=== PATIENT | female | born 1975 | race Caucasian/White ===

== ENCOUNTER 2017-08-23 10:01 | Emergency (ER) | payer BC ==
[2017-08-23 10:13] VITALS: BP 130/97
[2017-08-23] MEDS ORDERED: Sodium Chloride 0.9% 10 ML Syringe FLUSH PRN (10:35)
[2017-08-23] MEDS ORDERED: Famotidine 20 MG/2 ML SDV IVPUSH ONE (10:35)
[2017-08-23] MEDS ORDERED: Ondansetron 4 MG/2 ML SDV IVPUSH ONE (10:35)
[2017-08-23] MEDS ORDERED: Sodium Chloride 0.9% 1,000 ML IV SCH (10:45)
--- NOTE | 2017-08-23 11:07 | EDM.PDOC ---
ED HPI GENERAL MEDICAL PROBLEM - General Chief Complaint: Abdominal Pain Stated Complaint: RIGHT SIDE PAIN Time Seen by Provider: 08/23/17 10:23 Source of Information: Reports: Patient, RN Notes Reviewed - History of Present Illness INITIAL COMMENTS - FREE TEXT/NARRATIVE: 41-year-old female comes in with abdominal pain, nausea and vomiting. This all came on yesterday late afternoon or early evening. Reportedly had eaten a cheeseburger not long before onset of symptoms. She's had continued nausea and vomiting and now mostly dry heaves. She has intermittent pain and cramping but at time of my exam discomfort is very mild she also has been having some diarrhea but that has been more chronic going on for quite a long time. No fever or chills. 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 She does not give history of prior gallbladder problems that she is aware of. No chest pain or difficulty breathing. Right Upper Abdomen Pain Score (Numeric/FACES): 4 - Related Data Allergies Allergy/AdvReac Type Severity Reaction Status Date / Time morphine Allergy Anaphylactic Verified 08/23/17 10:13 Shock Penicillins Allergy Swollen Verified 09/01/13 08:40 Tongue shellfish derived Allergy Airway Verified 01/07/16 14:12 Tightness Home Meds: Home Meds Cetirizine [ZyrTEC] 10 mg PO DAILY 08/23/17 [History] Past Medical History Respiratory History: Reports: Asthma, Bronchitis, Recurrent, Pneumonia, Recurrent Gastrointestinal History: Reports: Other (See Below) Other Gastrointestinal History: "colon errosion" in 2006 Genitourinary History: Reports: Other (See Below) Other Genitourinary History: pain with urination VICE PRINCIPAL History: Reports: Other (See Below) Other OB/BYN History: benign left ovarian mass removed 2013 Neurological History: Reports: Migraines Psychiatric History: Reports: Anxiety, Depression - Past Surgical History HEENT Surgical History: Reports: Tonsillectomy Social & Family History - Family History Family Medical History: Noncontributory - Tobacco Use Smoking Status *Q: Current Every Day Smoker Years of Tobacco use: 18 Packs/Tins Daily: 0.5 - Caffeine Use Caffeine Use: Reports: Energy Drinks, Soda - Recreational Drug Use Recreational Drug Use: No ED ROS GENERAL - Review of Systems Review Of Systems: See Below Constitutional: Denies: Fever, Chills, Diaphoresis HEENT: Denies: Throat Pain Respiratory: Denies: Shortness of Breath, Pleuritic Chest Pain Cardiovascular: Denies: Chest Pain GI/Abdominal: Reports: Abdominal Pain, Diarrhea, Nausea, Vomiting Musculoskeletal: Reports: Back Pain (Mild, gone) Skin: Reports: No Symptoms Neurological: Reports: Headache ED EXAM, GI/ABD - Physical Exam Exam: See Below General Appearance: Alert, Mild Distress Eyes: Bilateral: Normal Appearance Throat/Mouth: Normal Inspection, Normal Oropharynx Head: Atraumatic. No: Facial Swelling Neck: Supple, Full Range of Motion Respiratory/Chest: No Respiratory Distress, Lungs Clear, Normal Breath Sounds Cardiovascular: Regular Rate, Rhythm GI/Abdominal Exam: Soft, Tender (Mild upper mid abdominal tenderness, lower abdomen completely soft and nontender). No: Guarding, Rebound Extremities: Normal Inspection Neurological: Alert, Oriented, No Motor/Sensory Deficits Skin Exam: Warm, Dry, Normal Color Course - Vital Signs Last Recorded V/S: Last Vital Signs Temp 98.1 F 08/23/17 10:07 Pulse 78 08/23/17 10:07 Resp 16 08/23/17 10:07 BP 130/97 H 08/23/17 10:07 Pulse Ox 98 08/23/17 10:07 - Orders/Labs/Meds Orders: Active Orders 24 hr Category Date Time Status Peripheral IV Care [RC] . DIRECTED Care 08/23/17 10:35 Active Peripheral IV Insertion Adult [OM.PC] Stat Oth 08/23/17 10:35 Ordered Labs: Laboratory Tests 08/23/17 08/23/17 08/23/17 Range/Units 11:15 11:15 11:35 WBC 6.94 (3.98-10.04) K/mm3 RBC 4.71 (3.98-5.22) M/mm3 Hgb 13.4 (11.2-15.7) gm/L Hct 41.0 (34.1-44.9) % MCV 87.0 (79.4-94.8) fl MCH 28.5 (25.6-32.2) pg MCHC 32.7 (32.2-35.5) g/dl RDW Std Deviation 41.8 (36.4-46.3) fL Plt Count 269 (182-369) K/mm3 MPV 10.1 (9.4-12.3) fl Neut % (Auto) 59.3 (34.0-71.1) % Lymph % (Auto) 22.8 (19.3-51.7) % [place] % (Auto) 8.6 (4.7-12.5) % Eos % (Auto) 8.2 H (0.7-5.8) Baso % (Auto) 1.0 (0.1-1.2) % Neut # (Auto) 4.11 (1.56-6.13) K/mm3 Lymph # (Auto) 1.58 (1.18-3.74) K/mm3 [place] # (Auto) 0.60 H (0.24-0.36) K/mm3 Eos # (Auto) 0.57 H (0.04-0.36) K/mm3 Baso # (Auto) 0.07 (0.01-0.08) K/mm3 Sodium 143 (136-145) mEq/L Potassium 3.7 (3.5-5.1) mEq/L Chloride 108 H (98-107) mEq/L Carbon Dioxide 27 (21-32) mEq/L Anion Gap 11.7 (5-15) BUN 17 (7-18) mg/dL Creatinine 0.6 (0.55-1.02) mg/dL Est Cr Clr Drug Dosing 95.62 mL/min Estimated GFR (MDRD) > 60 (>60) mL/min BUN/Creatinine Ratio 28.3 H (14-18) Glucose 93 (74-106) mg/dL Calcium 8.6 (8.5-10.1) mg/dL Total Bilirubin 0.7 (0.2-1.0) mg/dL AST 14 L (15-37) U/L ALT 18 (14-59) U/L Alkaline Phosphatase 38 L (46-116) U/L Total Protein 7.0 (6.4-8.2) g/dl Albumin 3.4 (3.4-5.0) g/dl Globulin 3.6 gm/dL Albumin/Globulin Ratio 0.9 L (1-2) Lipase 160 (73-393) U/L Urine Color Yellow (Yellow) Urine Appearance Slt cloudy H (Clear) Urine pH 7.0 (5.0-8.0) Ur Specific [place] 1.025 (1.005-1.030) Urine Protein Negative (Negative) Urine Glucose (UA) Negative (Negative) Urine Ketones 1+ H (Negative) Urine Occult Blood Negative (Negative) Urine Nitrite Negative (Negative) Urine Bilirubin Negative (Negative) Urine Urobilinogen 0.2 (0.2-1.0) Ur Leukocyte Esterase Negative (Negative) Urine RBC 0-5 (0-5) /hpf Urine WBC 0-5 (0-5) /hpf Ur Epithelial Cells 5-10 H (0-5) /hpf Urine Bacteria Few (FEW) /hpf Urine Mucus Few (FEW) /hpf Meds: Medications Discontinued Medications Generic Name Dose Route Start Last Admin Trade Name Freq PRN Reason Stop Dose Admin Acetaminophen 975 mg 08/23/17 11:54 08/23/17 12:00 Tylenol PO 08/23/17 11:55 975 mg NOW ONE Administration Famotidine 20 mg 08/23/17 10:35 08/23/17 10:41 Pepcid IVPUSH 08/23/17 10:36 20 mg ONETIME ONE Administration Sodium Chloride 1,000 mls @ 999 mls/hr 08/23/17 10:45 08/23/17 10:42 Normal Saline IV 999 mls/hr ONETIME LYNN Administration Ketorolac Tromethamine 30 mg 08/23/17 12:00 08/23/17 12:01 Toradol IVPUSH 30 mg ONETIME LYNN Administration Ondansetron HCl 4 mg 08/23/17 10:35 08/23/17 10:41 Zofran IVPUSH 08/23/17 10:36 4 mg ONETIME ONE Administration Sodium Chloride 10 ml 08/23/17 10:35 08/23/17 10:41 Saline Flush FLUSH 10 ml ASDIRECTED PRN Administration Keep Vein Open - Re-Assessments/Exams Free Text/Narrative Re-Assessment/Exam: 08/23/17 19:03 Labs are all good, patient feeling much better after IV fluid and Zofran. We did give some Toradol and Tylenol for headache. Discharge instructions as documented. Departure - Departure Time of Disposition: 12:48 Disposition: Home, Self-Care 01 Clinical Impression: Abdominal pain Qualifiers: Abdominal location: upper abdomen, unspecified Qualified Code(s): R10.10 - Upper abdominal pain, unspecified Vomiting Qualifiers: Vomiting type: unspecified Vomiting Intractability: non-intractable Nausea presence: with nausea Qualified Code(s): R11.2 - Nausea with vomiting, unspecified - Discharge Information Instructions: Abdominal Pain, Adult, [id number], Vomiting, Adult Referrals: PCP,None [Primary Care Provider] - Forms: ED Department Discharge, ED Return to Work/School Form Additional Instructions: Clear liquids until this evening, than very careful bland diet as tolerated, avoid milk and dairy products for at least 2-3 days, probiotic twice daily for the next week and thereafter as needed, clinic with Dr. Garcia or one of the other providers as suggested in about 3-4 days for recheck and also for a complete physical. Call [phone] for appointment. - My Orders Last 24 Hours: My Active Orders 08/23/17 10:35 Peripheral IV Care [RC] . DIRECTED Peripheral IV Insertion Adult [OM.PC] Stat - Assessment/Plan Last 24 Hours: My Active Orders 08/23/17 10:35 Peripheral IV Care [RC] . DIRECTED Peripheral IV Insertion Adult [OM.PC] Stat
[2017-08-23] MEDS ORDERED: Acetaminophen 325 MG Tab PO ONE (11:54)
[2017-08-23] MEDS ORDERED: Ketorolac 30 MG/ML SDV IVPUSH SCH (12:00)
== END 2017-08-23 13:00 | disposition home or self-care (01) ==
LOC: JD.ED 10:01
DX: R10.10 Upper abdominal pain, unspecified (principal); R11.2 Nausea with vomiting, unspecified; F17.210 Nicotine dependence, cigarettes, uncomplicated; Z88.5 Allergy status to narcotic agent; Z88.0 Allergy status to penicillin; Z91.013 Allergy to seafood
CPT/HCPCS: 36415; 80053; 81001; 83690; 85025; 96361; 96374; 96375; 99284; A9270; J1885; J2405; J7040; J7050

== ENCOUNTER 2018-06-03 12:22 | Emergency (ER) | payer BC, OTHER, SELFPAY ==
[2018-06-03 12:34] VITALS: BP 138/70
[2018-06-03] MEDS ORDERED: Cyclobenzaprine 10 MG Tab PO ONE (12:57)
[2018-06-03] MEDS ORDERED: Ketorolac 60 MG/2 ML SDV IM ONE (13:03)
[2018-06-03] MEDS: Ketorolac 30 MG/ML SDV IVPUSH ONE ×2 (13:04→13:09)
--- NOTE | 2018-06-03 13:20 | EDM.PDOC ---
<Tomeka Velez - Last Filed: 06/03/18 13:20> ED HPI GENERAL MEDICAL PROBLEM - General Chief Complaint: Back Pain or Injury Stated Complaint: BACK PAIN Time Seen by Provider: 06/03/18 12:33 Source of Information: Reports: Patient History Limitations: Reports: No Limitations - History of Present Illness INITIAL COMMENTS - FREE TEXT/NARRATIVE: 42-year-old female presents to emergency with chief complaints of sudden onset of lower back pain. She reports she has history of similar back pain in the past and had a "muscle." She states that the pain started in her lower back and his moving up her spine. She denies any incontinence of bowel or bladder, denies any chills or fever, denies any dysuria. She reports that she took Advil and Tylenol last evening. 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 She reports that she's been healthy otherwise. She does not currently have a PCP. Onset: Today, Sudden Onset Date: 06/03/18 Onset Time: 09:00 Duration: Getting Worse Location: Reports: Back Quality: Reports: Ache Severity: Mild Improves with: Reports: Medication Worsens with: Reports: Movement Associated Symptoms: Reports: No Other Symptoms. Denies: Chest Pain, Fever/ Chills, Headaches, Nausea/Vomiting, Shortness of Breath Middle Back Pain Score (Numeric/FACES): 8 - Related Data Allergies Allergy/AdvReac Type Severity Reaction Status Date / Time morphine Allergy Anaphylactic Verified 08/23/17 10:13 Shock Penicillins Allergy Swollen Verified 09/01/13 08:40 Tongue shellfish derived Allergy Airway Verified 01/07/16 14:12 Tightness Home Meds: Home Meds Cetirizine [ZyrTEC] 10 mg PO DAILY 08/23/17 [History] Cyclobenzaprine [Flexeril] 10 mg PO BID PRN #20 tab 06/03/18 [Rx] Past Medical History Respiratory History: Reports: Asthma, Bronchitis, Recurrent, Pneumonia, Recurrent Gastrointestinal History: Reports: Other (See Below) Other Gastrointestinal History: "colon errosion" in 2006 Genitourinary History: Reports: Other (See Below) Other Genitourinary History: pain with urination 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 History: benign left ovarian mass removed 2014 Musculoskeletal History: Reports: Back Pain, Chronic Neurological History: Reports: Migraines Psychiatric History: Reports: Anxiety, Depression - Past Surgical History HEENT Surgical History: Reports: Tonsillectomy Social & Family History - Family History Family Medical History: Noncontributory - Tobacco Use Smoking Status *Q: Current Every Day Smoker Years of Tobacco use: 19 Packs/Tins Daily: 0.5 - Caffeine Use Caffeine Use: Reports: Coffee - Recreational Drug Use Recreational Drug Use: No ED ROS GENERAL - Review of Systems Review Of Systems: ROS reveals no pertinent complaints other than HPI. Respiratory: Reports: No Symptoms Cardiovascular: Reports: No Symptoms GI/Abdominal: Reports: No Symptoms Musculoskeletal: Reports: Back Pain Skin: Reports: No Symptoms Neurological: Reports: No Symptoms (Denies any incontinence of bowel or bladder) Psychiatric: Reports: No Symptoms Hematologic/Lymphatic: Reports: No Symptoms Immunologic: Reports: No Symptoms ED EXAM,LOWER BACK PAIN/INJURY - Physical Exam Exam: See Below Exam Limited By: No Limitations General Appearance: Alert, WD/WN, No Apparent Distress Ears: Normal External Exam, Normal Canal, Hearing Grossly Normal, Normal TMs Nose: Normal Inspection, Normal Mucosa, No Blood Throat/Mouth: Normal Lips, Normal Teeth, Normal Oropharynx, Normal Voice, No Airway Compromise Neck: Normal Inspection, Supple, Non-Tender, Full Range of Motion Respiratory/Chest: No Respiratory Distress, Lungs Clear, Normal Breath Sounds, No Accessory Muscle Use, Chest Non-Tender Cardiovascular: Normal Peripheral Pulses, Regular Rate, Rhythm, No Edema, No Gallop, No JVD, No Murmur, No Rub Back Exam: Normal Inspection. No: Full Range of Motion (Patient has decreased range of motion due to pain, she has range of motion against resistance, patient is able to bend, stoop, twist and dorsiflex toes. Her skin is intact with normal temperature and sensation.) Extremities: Normal Inspection, Normal Range of Motion, Non-Tender, No Pedal Edema, Normal Capillary Refill Neurological: Alert, Normal Mood/Affect, Normal Dorsiflexion, CN II-XII Intact, Normal Plantar Flexion, Normal Gait, Normal Reflexes, No Motor/Sensory Deficits , Oriented x 3 Psychiatric: Normal Affect, Normal Mood Skin Exam: Warm, Dry, Intact, Normal Color, No Rash Lymphatic: No Adenopathy Course - Vital Signs Last Recorded V/S: Last Vital Signs Temp 97.3 F 06/03/18 12:30 Pulse 79 06/03/18 12:30 Resp 16 06/03/18 12:30 BP 138/70 06/03/18 12:30 Pulse Ox 98 06/03/18 12:30 - Orders/Labs/Meds Meds: Medications Discontinued Medications Generic Name Dose Route Start Last Admin Trade Name Freq PRN Reason Stop Dose Admin Cyclobenzaprine HCl 10 mg 06/03/18 12:57 06/03/18 13:08 Flexeril PO 06/03/18 12:58 10 mg ONETIME ONE Administration Ketorolac Tromethamine 60 mg 06/03/18 12:56 06/03/18 13:09 Toradol IVPUSH 06/03/18 12:57 60 mg ONETIME ONE Administration Ketorolac Tromethamine 60 mg 06/03/18 13:03 06/03/18 13:10 Toradol IM 06/03/18 13:04 60 mg ONETIME ONE Administration - Re-Assessments/Exams Free Text/Narrative Re-Assessment/Exam: 06/03/18 13:26 Patient received Toradol and Flexeril and her condition improved. I'll discharge home with back exercises. I will discharge him with a small amount of Flexeril. Instructed patient to Drink, Drive or Operate Machinery. Instructed patient to follow with PCP. I did give her a list of providers in the area. Straight the patient to return to the emergency room for any new or acutely worsening symptoms. Departure - Departure Time of Disposition: 13:27 Disposition: Home, Self-Care 01 Clinical Impression: Low back strain Qualifiers: Encounter type: initial encounter Qualified Code(s): S39.012A - Strain of muscle, fascia and tendon of lower back, initial encounter - Discharge Information *PRESCRIPTION DRUG MONITORING PROGRAM REVIEWED*: Not Applicable *COPY OF PRESCRIPTION DRUG MONITORING REPORT IN PATIENT ANG: Not Applicable Prescriptions: Cyclobenzaprine [Flexeril] 10 mg PO BID PRN #20 tab PRN Reason: back pain Instructions: Low Back Sprain, Muscle Strain, [id number] Referrals: PCP,None [Primary Care Provider] - Forms: ED Department Discharge Additional Instructions: He had been diagnosed with lower back strain. Toradol and Flexeril for pain. Do not take any Advil, and naproxen or Aleve today. You can take Flexeril as needed for pain do not drink drive or operate machine while taking this medication. I will give her a referral for [facility] for follow-up appointment. Instructed patient to return to emergency for any new or acutely worsening symptoms. <Reji Benton - Last Filed: 06/03/18 19:41> Course - Re-Assessments/Exams Free Text/Narrative Re-Assessment/Exam: 06/03/18 19:40 Initial hx and exam was done by TONEY Fontenot. I have also visited with, examined patient. I agree with hx and exam, treatment plan as documented.
== END 2018-06-03 13:57 | disposition home or self-care (01) ==
LOC: JD.ED 12:22
DX: S39.012A Strain of muscle, fascia and tendon of lower back, initial encounter (principal); F17.210 Nicotine dependence, cigarettes, uncomplicated; Z88.5 Allergy status to narcotic agent; Z88.0 Allergy status to penicillin; Z91.013 Allergy to seafood; X58.XXXA Exposure to other specified factors, initial encounter
CPT/HCPCS: 96372; 99283; A9270; J1885